=== PATIENT | male | born 2000 | race Caucasian/White ===

== ENCOUNTER 2022-09-12 19:28 | Emergency (ER) | payer MEDICAID, OTHER ==
[~2022-09-12] VITALS: Ht 175.3 cm; Wt 88.9 kg
[2022-09-12] MEDS ORDERED: FLUORESCEIN OPHTH 1MG STRIP OD ONE (20:55)
[2022-09-12] MEDS ORDERED: TETRACAINE 0.5% OPHTH SOLN 4ML OD ONE (20:55)
[2022-09-12] MEDS ORDERED: CIPROFLOXACIN 0.3% OPHTH SOLN 2.5ML OD ONE (22:10)
[2022-09-12] MEDS ORDERED: CIPR0.3S6 OD ×2 (22:11→23:27)
[2022-09-12 22:19] VITALS: BP 129/74
[2022-09-13] MEDS ORDERED: UNRESOLVED CLARIFICATION ENTRY XX SCH (00:01)
== END 2022-09-12 22:31 | disposition home or self-care (01) ==
LOC: M ED 19:28
DX: T15.01XA Foreign body in cornea, right eye, initial encounter (principal); W22.8XXA Striking against or struck by other objects, initial encounter; Y99.1 Military activity